=== PATIENT | male | born 1955 | race Two or more races ===

== ENCOUNTER 2024-03-15 20:23 | Emergency (ER) | payer MEDICARE, SELFPAY ==
[2024-03-15 20:27] VITALS: BP 152/70; PULSE 72; RESP 18; TEMP 37.9; O2SAT 100
[2024-03-15 20:30] VITALS: PULSE 90; O2SAT 96
--- NOTE | 2024-03-15 20:36 | PD.EDFEVER ---
ED Fever RME/HPI General Chief Complaint: Nausea/Vomiting/Diarrhea Stated Complaint: FEVER Time Seen by Provider: 03/15/24 20:32 Source: patient Arrival date/time: 03/15/24 20:23 68-year-old male with a history of atrial fibrillation, atrial flutter, hyperlipidemia, type 2 diabetes presents to the emergency room with a chief complaint of a fever, cough, phlegm x 3 days. Mode of arrival: ambulatory Limitations: no limitations Related Data Home Medications ?Medication ?Instructions ?Recorded ?Confirmed apixaban 5 mg tablet (Eliquis) 5 mg PO BID 12/28/19 06/26/23 irbesartan 150 mg tablet 150 mg PO QDAY 12/28/19 06/26/23 diltiazem HCl 120 mg 120 mg PO QDAY 06/12/21 06/26/23 capsule,extended release 24 hr metoprolol tartrate 50 mg tablet 50 mg PO DAILY 06/12/21 06/26/23 tamsulosin 0.4 mg capsule 0.4 mg PO QDAY 06/12/21 06/26/23 sitagliptin phos 50 mg-metformin 1 tab PO QDAY 02/17/22 06/26/23 ER 1,000 mg tablet,extend rel 24h mp (Janumet XR) atorvastatin 40 mg tablet 40 mg PO QDAY 06/19/23 06/26/23 cholecalciferol (vitamin D3) 125 125 mcg PO QDAY 06/19/23 06/26/23 mcg (5,000 unit) tablet (Vitamin D3) magnesium carb,citrate,oxide 300 mg PO DAILY 06/19/23 06/26/23 (Magnesium Complex) Previous Rx's ?Medication ?Instructions ?Recorded duloxetine 30 mg capsule,delayed 30 mg PO QDAY #30 caps 10/05/18 release gabapentin 300 mg capsule 300 mg PO TID #90 caps 10/05/18 acetaminophen 325 mg capsule 650 mg (2 x 325 mg) PO QID PRN 03/15/24 fever or pain 7 days #30 caps ibuprofen 600 mg tablet 600 mg PO Q8H PRN fever or pain 03/15/24 #20 tabs Allergies Allergy/AdvReac Type Severity Reaction Status Date / Time No Known Allergies Allergy Verified 06/29/23 10:33 Review of Systems Review of Systems Systems Reviewed: All systems reviewed, normal except as documented Constitutional Constitutional: Reports system reviewed and no additional complaints, except as documented, Denies fatigue, Denies fever(s), Denies headache(s) and Denies weakness Eyes Eyes: Reports system reviewed and no additional complaints, except as documented, Denies blurry vision and Denies change in vision ENT Ears, Nose, Mouth, and Throat: Reports system reviewed and no additional complaints, except as documented, Denies otalgia, Denies headache(s), Denies nasal congestion, Denies throat swelling and Denies vertigo Cardiovascular Cardiovascular: Reports system reviewed and no additional complaints, except as documented, Denies chest pain, Reports dyspnea and Reports dyspnea on exertion Respiratory Respiratory: Reports system reviewed and no additional complaints, except as documented, Reports chest congestion, Reports cough, Reports dyspnea, Reports dyspnea on exertion, Reports excessive phlegm production and Denies wheezing Gastrointestinal Gastrointestinal: Reports system reviewed and no additional complaints, except as documented, Denies abdominal pain, Denies cramping, Denies nausea and Denies vomiting Genitourinary Genitourinary: Reports system reviewed and no additional complaints, except as documented, Denies dysuria and Denies hematuria Musculoskeletal Musculoskeletal: Reports system reviewed and no additional complaints, except as documented and Denies back pain Integumentary/Breasts Skin/Breast: Reports system reviewed and no additional complaints, except as documented and Denies wounds Neurologic Neurologic: Reports system reviewed and no additional complaints, except as documented, Denies confusion, Denies headache(s), Denies lack of coordination, Denies vertigo and Denies weakness Psychiatric Psychiatric: Reports system reviewed and no additional complaints, except as documented, Denies anxiety, Denies confusion, Denies depression, Denies paranoia, Denies suicidal ideation and Denies tactile hallucinations Endocrine Endocrine: Reports system reviewed and no additional complaints, except as documented and Denies fatigue Hematologic/Lymphatic Hematologic/Lymphatic: Reports system reviewed and no additional complaints, except as documented and Denies lymphadenopathy Allergic/Immunologic Allergic/Immunologic: Reports system reviewed and no additional complaints, except as documented, Denies throat swelling, Denies urticaria and Denies wheezing Physical Exam General Limitations: no limitations General appearance: alert and in no apparent distress Head Head exam: atraumatic Eye Eye exam: Present normal appearance, PERRL and EOMI ENT ENT exam: Present normal exam, normal oropharynx and mucous membranes moist Neck Neck exam: Present normal inspection, full ROM and trachea midline Chest Chest inspection: Present normal inspection and symmetric chest wall rise Respiratory Respiratory exam: Present normal lung sounds bilaterally; Absent respiratory distress, wheezes, stridor, accessory muscle use or prolonged expiratory phase Cardiovascular Cardiovascular exam: Present regular rate, normal rhythm and normal heart sounds Abdominal Exam Abdominal exam: Present soft and normal bowel sounds Extremities Exam Extremities exam: Present normal inspection and full ROM Back Exam Back exam: Present normal inspection and full ROM Neurological Exam Neurological exam: Present alert, oriented X3 and CN II-XII intact Psychiatric Psychiatric exam: Present normal affect and normal mood Skin Skin exam: Present warm, dry, intact and normal color ED Exam General Limitations: Present no limitations General appearance: Present alert and in no apparent distress Head Head exam: Present atraumatic Eye Eye exam: Present normal appearance, PERRL and EOMI ENT ENT exam: Present normal exam, normal oropharynx and mucous membranes moist Neck Neck exam: Present normal inspection, full ROM and trachea midline Chest Chest inspection: Present normal inspection and symmetric chest wall rise Respiratory Respiratory exam: Present normal lung sounds bilaterally; Absent respiratory distress, wheezes, stridor, accessory muscle use or prolonged expiratory phase Cardiovascular Cardiovascular exam: Present regular rate, normal rhythm and normal heart sounds Abdominal Exam Abdominal exam: Present soft and normal bowel sounds Extremities Exam Extremities exam: Present normal inspection and full ROM Back Exam Back exam: Present normal inspection and full ROM Neurological Exam Neurological exam: Present alert, oriented X3 and CN II-XII intact Psychiatric Psychiatric exam: Present normal affect and normal mood Skin Skin exam: Present warm, dry, intact and normal color Course Quality Measures none Orders Category Date Time Status Bedside COVID-19 Antigen Test NOW Care 03/15/24 20:36 Active Bedside Influenza A&B Antigen Test NOW Care 03/15/24 20:36 Completed XR chest 1V portable Stat Exams 03/15/24 20:44 Completed CBC Stat Lab 03/15/24 20:44 Completed CMP [Comprehensive Metabolic Panel] Stat Lab 03/15/24 20:44 Completed UA, C/S IF [Urinalysis, C/S if Indicated] Stat Lab 03/15/24 21:00 Completed Ibuprofen Tab [Motrin Tab] Med 03/15/24 20:35 Discontinued 600 mg PO X1 ONE Vital Signs Vital signs: Vital Signs Temperature 100.3 F 03/15/24 20:27 Pulse Rate 72 03/15/24 20:27 Respiratory Rate 18 03/15/24 20:27 Blood Pressure 152/70 H 03/15/24 20:27 Pulse Oximetry (%) 100 03/15/24 20:27 Oxygen Delivery Method Room Air 03/15/24 20:27 O2 saturation 100% within normal limits Fever MDM Narrative MDM Narrative:: 68-year-old male with a history of atrial fibrillation, atrial flutter, hyperlipidemia, type 2 diabetes presents to the emergency room with a chief complaint of a fever, cough, phlegm x 3 days. Patient is hemodynamically stable and in no apparent distress Lung sounds are clear bilaterally with no wheezing or any accessory muscle use X-ray was completed and was negative for any pneumonic infiltrates. Influenza test was positive for influenza A. Patient is 97% on room air. Patient was educated to follow-up with primary care provider and return to the emergency room for any evidence of worsening signs or symptoms. CBC CMP are within normal limits urinalysis was negative Patient data External records reviewed:: [facility] previous records Clinical information provided by:: patient Social determinants that could affect healthcare access:: none Patient has the following chronic illnesses:: Atrial fibrillation, atrial flutter, type 2 diabetes, hyperlipidemia How is presenting disease/condition affected by chronic disease/condition?: exacerbated by Evaluation data The following diagnostics were reviewed and interpreted by me:: lab results and radiology exam(s) Lab and/or radiology exams considered but not ordered:: Labs and radiology exams considered and ordered Interpretation Summary: Chest [id number]: Minor prominence left ventricle Mild vascular congestion. No lobar pneumonia or pulmonary edema Reverse right shoulder arthroplasty IMPRESSION: Mild vascular congestion Medications / Prescriptions Medications or Prescriptions considered but not ordered:: Medication given Medication administrations:: Medication Administration History Discontinued Medications Ibuprofen (Ibuprofen Tab 600 Mg Tablet) 600 mg PO X1 ONE Stop: 03/15/24 20:36 Last Admin: 03/15/24 20:52 Dose: 600 mg Documented By: SF Medication given Consultations Consultation(s) initiated? (list below): No Diagnosis Fever Differential Diagnosis: fever of unknown origin, community acquired pneumonia, viral infection and influenza Most likely diagnosis given after review of the tests above:: Influenza A Admission Indicated Admission indicated?: not indicated Admission Request Was there a request for admission?: No Disposition Plan Disposition Plan: Discharge Discharge Attestation Discharge Attestation: The patient and all family members were given an opportunity to ask questions and understood the discharge instructions. Discharge instructions specifically effects, indications for sooner follow up or return to the emergency department, and the expected course of current diagnosis. Patient condition: Stable Discharge Plan Plan Patient Disposition: HOME (Self Care) Disposition Comment: Stable Prescriptions/Referrals Prescriptions/Med Rec: New acetaminophen 325 mg capsule 650 mg PO QID PRN (Reason: fever or pain) 7 Days Qty: 30 0RF ibuprofen 600 mg tablet 600 mg PO Q8H PRN (Reason: fever or pain) Qty: 20 0RF No Action gabapentin 300 mg Capsule 300 mg PO TID Qty: 90 0RF duloxetine 30 mg Capsule,Delayed Release(Dr/Ec) 30 mg PO QDAY Qty: 30 0RF irbesartan 150 mg tablet 150 mg PO QDAY Eliquis 5 mg tablet 5 mg PO BID tamsulosin 0.4 mg Capsule 0.4 mg PO QDAY metoprolol tartrate 50 mg tablet 50 mg PO DAILY diltiazem HCl 120 mg capsule,extended release 24hr 120 mg PO QDAY Janumet XR 50-1,000 mg tablet, ER multiphase 24 hr 1 tab PO QDAY atorvastatin 40 mg Tablet 40 mg PO QDAY cholecalciferol (vitamin D3) [Vitamin D3] 125 mcg (5,000 unit) Tablet 125 mcg PO QDAY Magnesium Complex 300 mg magnesium Tablet 300 mg PO DAILY Problem List Clinical Impression: Influenza A Patient/Caregiver Discharge Instructions Education Materials: ED Influenza (Adult) Additional Instructions: Glen un seguimiento con del castillo proveedor de atenci?n primaria en las pr?ximas 24 a 48 horas. Aumente del castillo ingesta de l?quidos orales. Contin?e tomando Tylenol e ibuprofeno para controlar la fiebre. Si hay evidencia de signos o s?ntomas que empeoran, regrese a la tanja de emergencias de inmediato. Print Language: Dominican Stand Alone Forms: Kenna Award Info., Patient Portal Info Letter PA/OVEN BUILDER Supervising Physician PA/OVEN BUILDER Supervising Physician: Dr. Cameron
--- NOTE | 2024-03-15 20:44 | XR_ITS ---
Examination: AP chest single view Technique one AP portable upright chest single view Standing times Ramírez January 12, 2025 at 2059 hours INDICATIONS: Shortness of breath today. FINDINGS: Minor prominence left ventricle Mild vascular congestion. No lobar pneumonia or pulmonary edema Reverse right shoulder arthroplasty IMPRESSION: Mild vascular congestion
--- NOTE | 2024-03-15 20:51 | PC.NURSE ---
Initial contact with pt. Awake, c/o fever x 1 day. Denies n/v/d. NAD nited. Urine requested.
[2024-03-15 20:52] VITALS: TEMP 37.6
[2024-03-15] MEDS: IBUPROFEN TAB 600 MG TABLET PO (20:52)
[2024-03-15 21:00] VITALS: BP 151/75; PULSE 64; RESP 18; O2SAT 97
[2024-03-15 21:08] LABS: Collection Type, Urine Clean Catch
[2024-03-15 21:09] LABS: Basophils % (Auto) 0 % (0-2.5); Eosinophils % (Auto) 0 % (0-10); Hematocrit 35.2 % (41.0-53.0); Hemoglobin 11.9 g/dL (13.5-16.0); Immature Granulocytes % (Auto) 0 % (0-0); Immature Granulocytes Auto 0.02 Thou/mm3 (0.00-0.00); Lymphocytes % (Auto) 12 % (10-50); Mean Corpuscular HGB Conc 33.8 g/dl (31.0-37.0); Mean Corpuscular Volume 80 fL (80-100); Monocytes # (Auto) 0.7 Thou/mm3 (0.0-0.8); Monocytes % (Auto) 9 % (0-12); Neutrophils # (Auto) 6.5 Thou/mm3 (1.8-7.7); Neutrophils % (Auto) 79 % (37-80); Nucleated Red Blood Cell % 0 /100 WBC (0); Platelet Count 124 Thou/mm3 (140-440); RDW Standard Deviation 43.7 fL (35.1-43.9); White Blood Count 8.3 Thou/mm3 (3.8-10.6)
[2024-03-15 21:21] LABS: Bilirubin,Urine Negative (Negative); Blood,Urine 1+ (Negative); Clarity,Urine Clear (Clear/Hazy); Color,Urine Yellow (Lt Yel-Yel); Culture Indicated,Urine Not Indicated; Glucose, Urine 1+ (Negative); Ketones,Urine Negative (Negative); Leukocyte Esterase,Urine Negative (Negative); Nitrite,Urine Negative (Negative); Protein,Urine 1+ (Neg - Trace); RBC,Urine 1 /hpf (0-3); Squamous Epithelial Cell,Urine < 1 /hpf (0-5); Urobilinogen,Urine Negative mg/dL (0.0-1.0); WBC,Urine 3 /hpf (0-5)
[2024-03-15 21:31] LABS: Alanine Aminotransferase 15 U/L (10-49); Albumin, Serum 4.6 gm/dL (3.4-4.8); Albumin/Globulin Ratio 1.8 (1.2-2.2); Alkaline Phosphatase 73 U/L (46-116); Anion Gap 9 (7-16); Aspartate Amino Transferase 25 U/L (0-34); BUN/Creatinine Ratio 11 Ratio (12-20); Blood Urea Nitrogen 11 mg/dL (9-23); Calcium 8.6 mg/dL (8.3-10.6); Calcium (Corrected) 8.6 mg/dL (8.5-10.1); Carbon Dioxide 24.7 mMol/L (20.0-31.0); Chloride 95 mMol/L (98-107); Globulin 2.5 gm/dL (2.3-3.5); Glucose 196 mg/dL (74-106); Osmolality,Calculated 263 (275-295); Potassium 3.7 mMol/L (3.4-5.1); Sodium 129 mMol/L (136-145); Total Protein 7.1 gm/dL (5.7-8.2); eGFR > 60 See Note
== END 2024-03-15 21:58 | disposition home or self-care (01) ==
LOC: SERX 21:49
PROVIDERS: Nurse Practitioner Family; Emergency Provider Emergency Medicine
DX: J10.1 Influenza due to other identified influenza virus with other respiratory manifestations (principal); E78.5 Hyperlipidemia, unspecified; I48.91 Unspecified atrial fibrillation; E11.9 Type 2 diabetes mellitus without complications
CPT/HCPCS: 36415; 71045; 80053; 81001; 85025; 87400; 87811; 99283; A9270